=== PATIENT | female | born 1970 | race Native Hawaiian/Other Pacific Islander ===

== ENCOUNTER 2018-08-04 19:37 | Outpatient (CLI) | payer OTHER ==
--- NOTE | 2018-08-10 11:11 | SLEEPMSLT ---
DATE OF PROCEDURE: 08/04/2018 REFERRING PHYSICIAN: Dr. Russell. INTERPRETATION: An overnight polysomnography was performed for evaluation of excessive daytime sleepiness. A total 7 hours and 55 minutes of data was reviewed with total sleep time 382.5 minutes with prolonged sleep latency and reduced sleep efficiency. The oxygen saturation remained 93% or above throughout the study. EEG remained normal throughout. EKG revealed sinus bradycardia with mean heart rate 58 beats per minute. There was no significant respiratory events, respiratory effort related arousals during this study. Periodic limb movement index was high at 34.8 per hour. There was mild snoring during this study. CONCLUSION: 1. Primary snoring, no evidence of obstructive sleep apnea syndrome. 2. Periodic limb movements of sleep which can be seen with restless leg syndrome. MULTIPLE SLEEP LATENCY TEST: Performed on August 05, 2018 INTERPRETATION: After overnight polysomnography a multiple sleep latency test was performed for evaluation of excessive daytime sleepiness. A total of five naps were recorded with sleep onset latencies 19, 10, 5.5, 8, 5 minutes respectively with mean sleep onset latency 9.5 minutes. No capital REM sleep was achieved in any of the naps. CONCLUSION: This multiple sleep latency test is mildly abnormal due to mildly reduced sleep onset latency indicative of mild excessive daytime sleepiness such as seen in idiopathic hypersomnia. MTDD
== END 2018-08-05 14:30 ==
LOC: M SLEEP 19:37
PROVIDERS: ATTEND Psychiatry & Neurology Neurology
DX: R06.83 Snoring (principal); F06.30 Mood disorder due to known physiological condition, unspecified; G47.00 Insomnia, unspecified; I10 Essential (primary) hypertension

== ENCOUNTER → 2021-10-23 | Outpatient (CLI) | payer OTHER | LOC: M WHC 08:33 | PROVIDERS: ATTEND Nurse Practitioner Family | DX: Q96.9 Turner's syndrome, unspecified (principal) ==

== ENCOUNTER → 2022-04-25 | Outpatient (CLI) | payer OTHER | LOC: M CARPUL 09:36 | PROVIDERS: ATTEND Student in an Organized Health Care Education/Training Program | DX: R53.83 Other fatigue (principal) ==

== ENCOUNTER → 2023-11-26 | Outpatient (CLI) | payer OTHER | LOC: M CARPUL 12:54 | PROVIDERS: ATTEND Internal Medicine | DX: Q96.0 Karyotype 45, X (principal) ==

== ENCOUNTER → 2023-11-30 | Outpatient (CLI) | payer OTHER | LOC: M WHC 08:55 | PROVIDERS: ATTEND Internal Medicine | DX: Q96.0 Karyotype 45, X (principal); M85.89 Other specified disorders of bone density and structure, multiple sites ==

== ENCOUNTER 2024-01-18 09:35 | Emergency (ER) | payer OTHER ==
[~2024-01-18] VITALS: Ht 139.7 cm; Wt 78.4 kg
[2024-01-18 10:37] LABS: BASO % 0.5 % (0.0-1.0); CK-MB VALUE MASS 2.7 NG/ML (<3.6); EOS # 0.1 10^3/uL (0.0-0.5); EOS % 1.2 % (0.0-3.0); HEMATOCRIT 42.3 % (36.0-47.0); HEMOGLOBIN 14.5 g/dl (12.0-15.5); LYMPH # 1.9 10^3/uL (1.5-5.0); LYMPH % 33.9 % (24.0-44.0); MEAN CORPUSCULAR HEMOGLOBIN 28.8 pg (27.0-33.0); MEAN CORPUSCULAR HGB CONC 34.3 g/dl (32.0-36.5); MEAN CORPUSCULAR VOLUME 84.1 fl (80.0-96.0); MONO # 0.6 10^3/uL (0.0-0.8); MONO % 9.7 % (2.0-8.0); NEUTROPHILS # 3.1 10^3/uL (1.5-8.5); NEUTROPHILS % 54.2 % (36.0-66.0); PLATELET COUNT, AUTOMATED 272 10^3/uL (150-450); RED BLOOD COUNT 5.03 10^6/uL (4.00-5.40); WHITE BLOOD COUNT 5.7 10^3/uL (4.0-10.0)
[2024-01-18 10:38] LABS: LIPASE 61 U/L (12-53)
[2024-01-18 10:40] LABS: ALBUMIN 4.2 G/DL (3.2-5.2); ALKALINE PHOSPHATASE 121 U/L (46-116); ALT/SGPT 30 U/L (7.0-40); AST/SGOT 28 U/L (<34); BILIRUBIN,DIRECT < 0.1 MG/DL (<0.4); BILIRUBIN,TOTAL 0.4 MG/DL (0.3-1.2); BLOOD UREA NITROGEN 17 MG/DL (9-23); CALCIUM LEVEL 8.9 MG/DL (8.5-10.1); CARBON DIOXIDE LEVEL 26 MMOL/L (20-31); CHLORIDE LEVEL 109 MMOL/L (98-107); CREATININE FOR GFR 0.72 MG/DL (0.55-1.30); GLOMERULAR FILTRATION RATE > 60.0 (>51); GLUCOSE, FASTING 109 MG/DL (60-100); POTASSIUM SERUM 3.7 MMOL/L (3.5-5.1); SODIUM LEVEL 142 MMOL/L (136-145); TOTAL PROTEIN 7.8 G/DL (5.7-8.2)
[2024-01-18 10:42] LABS: FREE T4 1.31 NG/DL (0.89-1.76); THYROID STIMULATING HORMONE 1.905 uIU/ML (0.55-4.78)
[2024-01-18 10:44] LABS: INR 0.96; PARTIAL THROMBOPLASTIN TIME 27.1 SECONDS (24.8-34.2); PROTHROMBIN TIME 12.5 SECONDS (12.5-14.5)
[2024-01-18 10:55] LABS: CPK CREATINE PHOSPHOKINASE 359 U/L (34-145); MB/CK RELATIVE INDEX 0.75 (< OR =4)
[2024-01-18] MEDS ORDERED: ISOVUE-370 76% 100ML VIAL As Ordered ONE (11:15)
[2024-01-18 11:42] LABS: MB/CK RELATIVE INDEX 0.64 (< OR =4)
[2024-01-18 12:35] VITALS: BP 148/68; TEMP 97.8; O2SAT 98
== END 2024-01-18 12:35 | disposition home or self-care (01) ==
LOC: M ED 09:35
DX: R07.89 Other chest pain (principal); I10 Essential (primary) hypertension; E78.5 Hyperlipidemia, unspecified
CPT/HCPCS: 36415; 71045; 71275; 80048; 80076; 82550; 82553; 83690; 83880; 84439; 84443; 84484; 85025; 85610; 85730; 93005; 93041; 94760; 99285; Q9967